=== PATIENT | male | born 1960 | race African-American/Black ===

== ENCOUNTER 2024-07-07 15:09 | Inpatient (IN) | payer MEDICAID ==
[~2024-07-07] VITALS: Ht 182.9 cm; Wt 86.0 kg
[~2024-07-07 15:09] MED LIST: NO HOME MEDS; piperacillin/tazo 3.375gm/50ml 50 ML IV SCH
[2024-07-07] MEDS ORDERED: ondansetron/PF 4mg/2ml inj IV PRN ×2 (16:05→18:00)
[2024-07-07 16:19] LABS: BASOPHILS % (AUTO) 0.3 % (0-1); EOSINOPHILS % (AUTO) 0.2 % (0-6); HEMATOCRIT 44.4 % (42.0-52.0); HEMOGLOBIN 14.8 g/dl (14.0-17.9); LYMPHOCYTES # (AUTO) 1.3 X10'3 (1.1-4.8); LYMPHOCYTES % (AUTO) 7.7 % (21-51); MEAN CORPUSCULAR HEMOGLOBIN 31.1 PG (27.0-31.0); MEAN CORPUSCULAR HGB CONC 33.3 g/dL (33.0-36.5); MEAN CORPUSCULAR VOLUME 93.6 FL (78-98); MEAN PLATELET VOLUME 9.5 FL (7.4-10.4); MONOCYTES # (AUTO) 1.2 X10'3 (0-0.9); MONOCYTES % (AUTO) 7.1 % (2-12); NEUTROPHILS # (AUTO) 14.7 X10'3 (1.8-7.7); NEUTROPHILS % (AUTO) 84.7 % (42-75); PLATELET COUNT 472 X10'3 (140-440); RED BLOOD COUNT 4.74 X10'6 (4.70-6.10); RED CELL DISTRIBUTION WIDTH 13.3 % (11.5-14.5); WHITE BLOOD COUNT 17.3 X10'3 (4.5-11.0)
[2024-07-07 16:22] LABS: ALBUMIN 2.6 G/DL (3.4-5.0); ANION GAP 13 (8-16); BLOOD UREA NITROGEN 9 MG/DL (7-18); BUN/CREATININE RATIO 8.1 (10.0-20.0); CALCIUM 9.3 MG/DL (8.5-10.1); CHLORIDE 98 MMOL/L (99-107); CREATININE 1.11 MG/DL (0.60-1.10); GLUCOSE 258 MG/DL (70-104); SODIUM 134 MMOL/L (135-145); eCRCL 77 ML/MIN; eGFR 81 ML/MIN
[2024-07-07] MEDS: normal saline 1000ML IV soln IVB ONE (16:28)
[2024-07-07] MEDS: morphine 4 MG/ML inj SYRINge IV ONE ×2 (16:31→17:11)
[2024-07-07] MEDS: potassium Cl 20 mEq SR tablet PO ONE (16:49)
[2024-07-07] MEDS: piperacillin/tazo 3.375gm/50ml 50 ML IV ONE (16:52)
[2024-07-07] MEDS: TETanus/Pertussis (Acell)/Diphther VAC/PF (Tdap-Adult) 0.5ml syringe IMVAC ONE (17:09)
[2024-07-07] MEDS: VANCOMYCIN 1GM 200ML H20 (PEG) 200 ML IV ONE (17:19)
[2024-07-07] MEDS ORDERED: morphine 2 MG/ML inj. syringe IV PRN (18:00)
[2024-07-07] MEDS ORDERED: haloperidol lactate 5mg/ml inj IM PRN (18:00)
[2024-07-07] MEDS ORDERED: DEXTROSE 15 GM of carb/4 tabs (each vial/BOTTLE has 4 tablets) PO PRN ×2 (18:00)
[2024-07-07] MEDS ORDERED: glucagon, human recombinant 1mg kit SUBCUT PRN (18:00)
[2024-07-07] MEDS ORDERED: acetaminophen 325mg tablet PO PRN ×2 (18:00)
[2024-07-07] MEDS ORDERED: magnesium sulf-water 4G/100mL 100 ML IV PRN (18:00)
[2024-07-07] MEDS ORDERED: magnesium sulf-water 2g/50mL 50 ML IV PRN (18:00)
[2024-07-07] MEDS ORDERED: LORazepam 2 mg/ml vial IV PRN (18:00)
[2024-07-07] MEDS ORDERED: magnesium hydroxide 30ml (MOM) UD suspension PO PRN (18:00)
[2024-07-07] MEDS ORDERED: dextrose 50%-water 50ml dispensing syringe IV PRN ×3 (18:00)
[2024-07-07] MEDS ORDERED: mag hydrox/Alum hydrox/simeth 30ml oral suspension PO PRN (18:00)
[2024-07-07] MEDS ORDERED: potassium Cl 40MEQ/1/2NS 520ml 520 ML IV PRN (18:00)
[2024-07-07] MEDS ORDERED: magnesium Cl slow-release 64mg tablet PO PRN (18:00)
[2024-07-07] MEDS ORDERED: haloperidol 5mg tablet PO PRN (18:00)
[2024-07-07] MEDS ORDERED: HYDROcodone/acetaminophen 5mg/325mg tablet PO PRN (18:00)
[2024-07-07 18:47] LABS: INR 1.1 INR
[2024-07-07 19:00] LABS: ALANINE AMINOTRANSFERASE 16 U/L (12-78); ALBUMIN/GLOBULIN RATIO 0.5 (1.1-1.5); ALKALINE PHOSPHATASE 116 IU/L (46-116); ASPARTATE AMINO TRANSFERASE 12 U/L (10-37); BILIRUBIN,DIRECT 0.1 MG/DL (0-0.3); BILIRUBIN,TOTAL 0.2 MG/DL (0.1-1.0); ETHANOL < 10 MG/DL (<10); LIPASE 31 U/L (16-77); TOTAL PROTEIN 8.1 G/DL (6.4-8.2)
[2024-07-07 19:10] LABS: HEMOGLOBIN A1C 10.1 % (4.5-6.2); PRO BRAIN NATRIURETIC PEPTIDE 54 PG/ML (0-125)
[2024-07-07] MEDS: K and/or MAG REPLACEMENT MC SCH (20:00)
[2024-07-07] MEDS: morphine 2 MG/ML inj. syringe IV PRN (20:14)
[2024-07-07] MEDS: normal saline 1000ml 1,000 ML IV SCH (20:16)
[2024-07-07] MEDS: clindamycin 300mg/D5W 50mL 50 ML IV SCH (20:16)
[2024-07-07] MEDS: docusate sod 100mg capsule PO SCH (20:24)
[2024-07-07] MEDS: heparin, porcine 5000 units/ml vial SQ SCH (20:28)
[2024-07-07] MEDS: INSULIN LISPRO 100 UNIT/ML INSULN.PEN MULTI-DOSE SQ SCH ×2 (21:00)
[2024-07-07] MEDS: insulin glargine (Lantus) pen - multi-dose SQ SCH (21:00)
[2024-07-07] MEDS: folic acid 1mg/0.2ml inj IV SCH (21:32)
[2024-07-07] MEDS: thiamine 100mg/ml 2ml inj. IV SCH (21:39)
[2024-07-08 00:32] LABS: BILIRUBIN,URINE NEGATIVE (Neg); CLARITY,URINE CLEAR (Clear); COLOR,URINE YELLOW (Yellow); GLUCOSE, URINE 500 mg/dl (Neg); KETONES,URINE 15 mg/dl (Neg); LEUKOCYTE ESTERASE ,URINE NEGATIVE (Neg); NITRITES, URINE NEGATIVE (Neg); OCCULT BLOOD,URINE NEGATIVE (Neg); PROTEIN,URINE TRACE mg/dl (Neg); UROBILINOGEN,URINE 0.2 E.U/dL (0.2-1.0)
[2024-07-08 00:38] LABS: SQUAMOUS EPITHELIAL CELL,UR MODERATE /LPF (FEW); UA COLLECTION TYPE NON-SPECIFIED
[2024-07-08 00:39] LABS: BACTERIA,URINE NONE SEEN /HPF (Neg); RBC,URINE NONE SEEN /HPF (0-2); TRANSITIONAL EPI CELLS,URINE FEW /HPF
[2024-07-08] MEDS: potassium Cl 20 mEq SR tablet PO PRN ×2 (00:51→13:49)
[2024-07-08 01:00] LABS: URINE AMPHETAMINE SCREEN NEGATIVE (Neg); URINE BARBITUATE SCREEN NEGATIVE (Neg); URINE BENZODIAZEPINES SCREEN NEGATIVE (Neg); URINE CANNABINOID SCREEN NEGATIVE (Neg); URINE COCAINE SCREEN NEGATIVE (Neg); URINE METHADONE SCREEN NEGATIVE (Neg); URINE OPIATE SCREEN POSITIVE (Neg); URINE PHENCYCLIDINE SCREEN NEGATIVE (Neg)
[2024-07-08 01:25] VITALS: BP 183/95; PULSE 98; RESP 18; TEMP 96.8; O2SAT 97
[2024-07-08] MEDS: piperacillin/tazo 3.375gm/50ml 50 ML IV SCH (01:45)
[2024-07-08] MEDS: cloNIDine 0.1 mg tablet PO ONE (01:56)
[2024-07-08 02:08] VITALS: RESP 18; O2SAT 99
[2024-07-08] MEDS: VANCOMYCIN 1GM 200ML H20 (PEG) 200 ML IV SCH (05:39)
[2024-07-08 06:00] VITALS: BP 158/85; PULSE 89; RESP 16; TEMP 97.9; O2SAT 98
[2024-07-08 07:27] LABS: BASOPHILS % (AUTO) 0.2 % (0-1); EOSINOPHILS % (AUTO) 0.1 % (0-6); HEMATOCRIT 39.8 % (42.0-52.0); HEMOGLOBIN 13.3 g/dl (14.0-17.9); LYMPHOCYTES # (AUTO) 1.4 X10'3 (1.1-4.8); LYMPHOCYTES % (AUTO) 9.2 % (21-51); MEAN CORPUSCULAR HEMOGLOBIN 31.4 PG (27.0-31.0); MEAN CORPUSCULAR HGB CONC 33.4 g/dL (33.0-36.5); MEAN PLATELET VOLUME 9.2 FL (7.4-10.4); MONOCYTES # (AUTO) 1.4 X10'3 (0-0.9); MONOCYTES % (AUTO) 9.3 % (2-12); NEUTROPHILS # (AUTO) 12.5 X10'3 (1.8-7.7); NEUTROPHILS % (AUTO) 81.2 % (42-75); PLATELET COUNT 414 X10'3 (140-440); RED BLOOD COUNT 4.23 X10'6 (4.70-6.10); WHITE BLOOD COUNT 15.4 X10'3 (4.5-11.0)
[2024-07-08 07:42] LABS: PROTHROMBIN TIME 10.9 SECONDS (9.0-12.0)
[2024-07-08 08:41] LABS: ALBUMIN 2.2 G/DL (3.4-5.0); ANION GAP 10 (8-16); BLOOD UREA NITROGEN 9 MG/DL (7-18); CALCIUM 8.3 MG/DL (8.5-10.1); CHLORIDE 101 MMOL/L (99-107); CHOL/HDL RATIO 2.3 (0.00-4.99); CHOLESTEROL 123 MG/DL (0-200); CREATININE 1.13 MG/DL (0.60-1.10); GLUCOSE 198 MG/DL (70-104); HDL CHOLESTEROL 53 MG/DL (35-60); LDL CHOLESTEROL 48 MG/DL (50-100); MAGNESIUM 1.7 MG/DL (1.5-2.4); PHOSPHORUS 2.1 MG/DL (2.3-4.5); POTASSIUM 3.4 MMOL/L (3.5-5.1); SODIUM 134 MMOL/L (135-145); TOTAL CARBON DIOXIDE 23.5 MMOL/L (24-32); TRIGLYCERIDES 87 MG/DL (20-135); eCRCL 75 ML/MIN; eGFR 80 ML/MIN
[2024-07-08 10:00] VITALS: BP 184/87; PULSE 97; RESP 18; TEMP 98; O2SAT 99
[2024-07-08] MEDS: multivitamins, therapeutics tablet PO SCH (10:00)
[2024-07-08] MEDS ORDERED: sodium phosphate inj. 15 MMOL in dextrose 5%-water 250 ML IV PRN (13:35)
[2024-07-08] MEDS ORDERED: sodium phosphate inj. 30 MMOL in dextrose 5%-water 250 ML IV PRN (13:35)
[2024-07-08] MEDS: CefTRIAXone 2gm/D5W 50ml BAG 50 ML IV SCH (13:48)
[2024-07-08] MEDS: EMPAGLIFLOZIN 10 MG TABLET PO SCH (13:48)
[2024-07-08] MEDS: Neutra Phos packet PO PRN (13:49)
[2024-07-08] MEDS: metroNIDAZOLE 500mg tablet PO SCH (13:49)
[2024-07-08] MEDS: HYDROcodone/acetaminophen 10/325mg tab PO PRN (16:22)
[2024-07-08 18:00] VITALS: BP 147/64; PULSE 86; RESP 14; TEMP 97.5; O2SAT 99
[2024-07-08 22:00] VITALS: BP 127/76; PULSE 73; RESP 16; TEMP 98.8; O2SAT 98
[2024-07-09] VITALS (8 sets, daily range): BP systolic 150–168; BP diastolic 78–87; PULSE 86–98; RESP 16–18; TEMP 97.9–99.3; O2SAT 97–99
[2024-07-09] MEDS: VANCOMYCIN LEVEL IV ONE ×2 (04:30→16:30)
[2024-07-09 06:30] LABS: BASOPHILS % (AUTO) 0.2 % (0-1); EOSINOPHILS % (AUTO) 0.3 % (0-6); HEMATOCRIT 38.5 % (42.0-52.0); HEMOGLOBIN 12.9 g/dl (14.0-17.9); LYMPHOCYTES # (AUTO) 1.5 X10'3 (1.1-4.8); LYMPHOCYTES % (AUTO) 10.9 % (21-51); MEAN CORPUSCULAR HEMOGLOBIN 31.5 PG (27.0-31.0); MEAN CORPUSCULAR HGB CONC 33.6 g/dL (33.0-36.5); MEAN CORPUSCULAR VOLUME 93.8 FL (78-98); MEAN PLATELET VOLUME 8.8 FL (7.4-10.4); MONOCYTES # (AUTO) 1.3 X10'3 (0-0.9); MONOCYTES % (AUTO) 9.7 % (2-12); NEUTROPHILS # (AUTO) 10.6 X10'3 (1.8-7.7); NEUTROPHILS % (AUTO) 78.9 % (42-75); PLATELET COUNT 464 X10'3 (140-440); WHITE BLOOD COUNT 13.4 X10'3 (4.5-11.0)
[2024-07-09 06:39] LABS: PROTHROMBIN TIME 10.6 SECONDS (9.0-12.0)
[2024-07-09 06:46] LABS: ALANINE AMINOTRANSFERASE 12 U/L (12-78); ALBUMIN 2.2 G/DL (3.4-5.0); ALBUMIN/GLOBULIN RATIO 0.4 (1.1-1.5); ALKALINE PHOSPHATASE 94 IU/L (46-116); ANION GAP 6 (8-16); ASPARTATE AMINO TRANSFERASE 13 U/L (10-37); BILIRUBIN,TOTAL 0.2 MG/DL (0.1-1.0); BLOOD UREA NITROGEN 11 MG/DL (7-18); BUN/CREATININE RATIO 9.5 (10.0-20.0); CALCIUM 8.7 MG/DL (8.5-10.1); CHLORIDE 102 MMOL/L (99-107); CREATININE 1.16 MG/DL (0.60-1.10); GLUCOSE 93 MG/DL (70-104); PHOSPHORUS 2.7 MG/DL (2.3-4.5); POTASSIUM 3.1 MMOL/L (3.5-5.1); SODIUM 134 MMOL/L (135-145); TOTAL CARBON DIOXIDE 26.3 MMOL/L (24-32); TOTAL PROTEIN 7.1 G/DL (6.4-8.2); eCRCL 73 ML/MIN; eGFR 77 ML/MIN
[2024-07-09 07:08] LABS: VANCOMYCIN,TROUGH 33.3 ug/mL (10.0-20.0)
[2024-07-09] MEDS: aspirin 81mg, enteric-coated 1 TAB TABLET.DR PO SCH (08:45)
[2024-07-09] MEDS: lisinopril 10 MG tablet PO SCH (08:46)
[2024-07-09] MEDS: hydrALAZINE 20mg/ml inj. IV PRN (12:38)
[2024-07-09] MEDS ORDERED: lisinopril 10 MG tablet PO SCH (17:10)
[2024-07-09] MEDS: atorvastatin 20mg tablet PO SCH (17:33)
[2024-07-09] MEDS: amLODIPine 5mg tablet PO SCH (17:36)
[2024-07-09] MEDS ORDERED: LORazepam 1 MG tablet PO PRN (18:00)
[2024-07-09] MEDS ORDERED: LORazepam 2 mg/ml vial IV PRN (18:00)
[2024-07-10 06:00] VITALS: BP 162/78; PULSE 80; RESP 16; TEMP 99; O2SAT 98
[2024-07-10 06:34] LABS: BASOPHILS # (AUTO) 0.1 X10'3 (0-0.2); BASOPHILS % (AUTO) 0.4 % (0-1); EOSINOPHILS % (AUTO) 0.4 % (0-6); HEMATOCRIT 38.6 % (42.0-52.0); LYMPHOCYTES # (AUTO) 1.7 X10'3 (1.1-4.8); LYMPHOCYTES % (AUTO) 14.9 % (21-51); MEAN CORPUSCULAR HEMOGLOBIN 31.7 PG (27.0-31.0); MEAN CORPUSCULAR HGB CONC 33.6 g/dL (33.0-36.5); MEAN CORPUSCULAR VOLUME 94.5 FL (78-98); MEAN PLATELET VOLUME 8.5 FL (7.4-10.4); MONOCYTES # (AUTO) 1.2 X10'3 (0-0.9); MONOCYTES % (AUTO) 10.5 % (2-12); NEUTROPHILS # (AUTO) 8.5 X10'3 (1.8-7.7); NEUTROPHILS % (AUTO) 73.8 % (42-75); PLATELET COUNT 502 X10'3 (140-440); RED BLOOD COUNT 4.09 X10'6 (4.70-6.10); RED CELL DISTRIBUTION WIDTH 13.1 % (11.5-14.5); WHITE BLOOD COUNT 11.6 X10'3 (4.5-11.0)
[2024-07-10 06:39] LABS: PROTHROMBIN TIME 10.7 SECONDS (9.0-12.0)
[2024-07-10 07:05] LABS: ALBUMIN 2.2 G/DL (3.4-5.0); ANION GAP 10 (8-16); BLOOD UREA NITROGEN 14 MG/DL (7-18); CALCIUM 8.8 MG/DL (8.5-10.1); CHLORIDE 104 MMOL/L (99-107); CREATININE 1.08 MG/DL (0.60-1.10); GLUCOSE 111 MG/DL (70-104); PHOSPHORUS 3.8 MG/DL (2.3-4.5); POTASSIUM 3.7 MMOL/L (3.5-5.1); SODIUM 135 MMOL/L (135-145); TOTAL CARBON DIOXIDE 21.5 MMOL/L (24-32); eCRCL 79 ML/MIN; eGFR 84 ML/MIN
[2024-07-10] MEDS ORDERED: lisinopril 10 MG tablet PO SCH (08:00)
[2024-07-10] MEDS: lisinopril 10 MG tablet PO SCH (08:54)
[2024-07-10 10:00] VITALS: BP 153/72; PULSE 81; RESP 16; TEMP 98.5; O2SAT 97
[2024-07-10] MEDS ORDERED: LISI10TA27 PO (12:21)
[2024-07-10] MEDS ORDERED: ATOR20TA66 PO (12:21)
[2024-07-10] MEDS ORDERED: EMPA10TA PO (12:21)
[2024-07-10] MEDS ORDERED: NOR5T PO (12:21)
[2024-07-10] MEDS ORDERED: METF-1203 PO (12:21)
[2024-07-10] MEDS ORDERED: ASPI-1071 PO (12:21)
[2024-07-10] MEDS ORDERED: AMOX-117 PO ×2 (12:21→14:02)
[2024-07-10] MEDS ORDERED: DOXY-243 PO ×2 (12:55→14:03)
[2024-07-10] MEDS ORDERED: HYDR-3965 PO (15:12)
[2024-07-10] MEDS ORDERED: VANCOMYCIN/WATER FOR INJ (PEG) 1.25GM/250 ML IVPB IV SCH (17:00)
[2024-07-11] MEDS ORDERED: LORazepam 2 mg/ml vial IV PRN (18:00)
[2024-07-11] MEDS ORDERED: LORazepam 1 MG tablet PO PRN (18:00)
[2024-07-12] MEDS ORDERED: VANCOMYCIN LEVEL IV ONE (04:30)
[2024-07-12] MEDS ORDERED: thiamine 100mg tablet PO SCH (08:00)
[2024-07-12] MEDS ORDERED: folic acid 1mg tablet PO SCH (08:00)
== END 2024-07-10 16:45 | disposition home or self-care (01) | DRG 720 ==
LOC: ER 15:09 → UNDOADMIN 17:57 → ORTHO 4S 17:57 → ED HOLD 17:57 → EDBEDREQTM 23:58 → ORTHO 4S 07-08 00:30
PROVIDERS: ADMIT Family Medicine; ATTEND Family Medicine
PROC: 3E0234Z Introduction of Serum, Toxoid and Vaccine into Muscle, Percutaneous Approach (ICD-10-PCS; 2024-07-07)
PROC: 0HBGXZZ Excision of Left Hand Skin, External Approach (ICD-10-PCS; principal; 2024-07-08)
DX: A41.9 Sepsis, unspecified organism (principal); N17.9 Acute kidney failure, unspecified; E83.39 Other disorders of phosphorus metabolism; L02.512 Cutaneous abscess of left hand; M86.8X4 Other osteomyelitis, hand; E11.65 Type 2 diabetes mellitus with hyperglycemia; L03.012 Cellulitis of left finger; E78.00 Pure hypercholesterolemia, unspecified; E87.6 Hypokalemia; F17.210 Nicotine dependence, cigarettes, uncomplicated; E11.69 Type 2 diabetes mellitus with other specified complication; I10 Essential (primary) hypertension; E86.0 Dehydration; F10.10 Alcohol abuse, uncomplicated; Y90.9 Presence of alcohol in blood, level not specified; I25.10 Atherosclerotic heart disease of native coronary artery without angina pectoris; Z83.3 Family history of diabetes mellitus; Z95.1 Presence of aortocoronary bypass graft; Z79.82 Long term (current) use of aspirin; Z23 Encounter for immunization
CPT/HCPCS: 36415; 73140; 80048; 80053; 80061; 80076; 80202; 80305; 80320; 81001; 82948; 83036; 83605; 83690; 83735; 83880; 84100; 84145; 85025; 85610; 86885; 86900; 86901; 87040; 87081; 87088; 90715; 93005; 93306; 96365; 96367; 99285; A6222; A6449; G0378; J0360; J0696; J1644; J1815; J2270; J2543; J3372; J3411; J3490; J7030; J7040

== ENCOUNTER 2024-07-21 13:35 | Emergency (ER) | payer MEDICAID ==
[~2024-07-21] VITALS: Ht 182.9 cm; Wt 81.8 kg
[~2024-07-21 13:35] MED LIST changes: +AMOX-117 PO; +ASPI-1071 PO; +ATOR20TA66 PO; +DOXY-243 PO; +EMPA10TA PO; +HYDR-3965 PO; +LISI10TA27 PO; +METF-1203 PO; +NOR5T PO; -piperacillin/tazo 3.375gm/50ml 50 ML IV SCH
[2024-07-21 15:21] VITALS: BP 117/79; PULSE 79; RESP 16; TEMP 98; O2SAT 98
== END 2024-07-21 15:25 | disposition home or self-care (01) ==
LOC: ER 13:35
DX: L02.512 Cutaneous abscess of left hand (principal); E78.00 Pure hypercholesterolemia, unspecified; E11.9 Type 2 diabetes mellitus without complications; Z95.1 Presence of aortocoronary bypass graft; Z79.82 Long term (current) use of aspirin; Z79.84 Long term (current) use of oral hypoglycemic drugs; Z79.899 Other long term (current) drug therapy
CPT/HCPCS: 99281; A6258

== ENCOUNTER 2025-07-06 21:22 | Emergency (ER) | payer SELFPAY ==
[~2025-07-06] VITALS: Ht 190.5 cm; Wt 113.4 kg
[2025-07-06 21:22] VITALS: BP 0/0; PULSE 0
[~2025-07-06 21:22] MED LIST changes: -HYDR-3965 PO; -METF-1203 PO
[2025-07-06] MEDS ORDERED: epiNEPHrine 0.1mg/ml 10ml syringe IV ONE (21:23)
[2025-07-06 21:30] VITALS: RESP 0; O2SAT 33
--- NOTE | 2025-07-06 21:57 | Physician Documentation ---
History of Present Illness ~ Stated Complaint: CODE 3 Time Seen by MD: 21:52 Primary Medical Doctor: No PMD HPI 64-year-old male, history of diabetes and CAD, presenting with altered mental status Per EMS, the patient reportedly was at home, in his son found him to be altered. On arrival he was not breathing well and was hypoxic. Blood sugar was normal. On arrival here, the patient is unresponsive. He quickly was found to have no pulse and CPR was started. No other history available Medication Reconciliation Allergies: Coded Allergies: No Known Allergies (Unverified , 07/21/24) Scheduled Amlodipine Besylate (Amlodipine Besylate), 5 MG PO DAILY Amox Tr/Potassium Clavulanate (Augmentin 875-125 Tablet), 1 TAB PO Q12H Aspirin (Ecotrin*), 1 TAB PO DAILY Atorvastatin Calcium (Atorvastatin Calcium), 40 MG PO DAILY Doxycycline Hyclate (Doxycycline Hyclate), 100 MG PO BID Empagliflozin (Jardiance), 1 TAB PO DAILY Lisinopril (Lisinopril), 10 MG PO DAILY Miscellaneous Medications Home Med List (No Home Medications), (Reported) Past Medical History Past Medical History: High Cholesterol, Diabetes Past Surgical History: coronary bypass surgery Patient History: FH: diabetes mellitus FATHER MOTHER Alcohol Use: Occasionally Review of Systems Unable to obtain complete ROS: altered mental status Physical Exam Physical Exam General: This is an ill-appearing middle-aged man, minimally responsive HEENT: No obvious head trauma, significant vomitus present, dark brown Heart: On my exam, he does not have pulses, no audible heart sounds Lungs: Minimal spontaneous respirations, BVM in progress Abdomen: Soft, distended abdomen Extremities: Extremities are cool to the touch Neuro: Unresponsive Procedures Intubation Time of Intubation: 2133 Intubation Method: orotracheal Endotracheal Tube Size: 8.0 Medications: none ETT Confirmation: Ascultation, CO2 Detector Breath Sounds After Intubation: equal Intubation Complications: vomited, apparent aspiration Post Intubation Xray: No Procedure Note The patient was intubated with some difficulty due to significant vomitus. Aggressive suctioning was performed, and the airway was secured. Medical Decision Making Additional information obtaine: family Findings Further history later obtained from the family Differential Dx:Considerations: Include: CVA, medication toxicity, infection - sepsis, renal failure, respiratory failure Additional Information The patient presents with altered mental status, hypoxia, and on arrival becomes pulseless. CPR was initiated. He was emergently intubated. Multiple rounds of CPR were performed, epinephrine was given through an IO. He remained in PA arrest. Bedside ultrasound shows no heart activity. Family arrived, and were brought to the room. After approximately 25 minutes of CPR, we had no response and he remained in PA arrest. Further CPR was deemed futile. Family was in agreement with stopping resuscitation efforts. The exact cause of his is unclear. Departure Disposition: 20 Impression: Primary Impression: Cardiac arrest Additional Impression: Referrals: NO PRIMARY CARE PROVIDER (PCP) Signature Scribe Signature: ekta Attestation: NAHUM Schultz MD Jul 06, 2025 21:57
== END 2025-07-07 02:29 ==
LOC: ER 21:22
DX: I46.9 Cardiac arrest, cause unspecified (principal); E11.9 Type 2 diabetes mellitus without complications; E78.00 Pure hypercholesterolemia, unspecified; I25.10 Atherosclerotic heart disease of native coronary artery without angina pectoris; Z95.1 Presence of aortocoronary bypass graft
CPT/HCPCS: 31500; 92950; 96374; 99285; J0169